=== PATIENT | female | born 1945 | race Caucasian/White ===

== ENCOUNTER 2017-09-09 09:24 | Emergency (ER) | payer MEDICARE, OTHER ==
[2017-09-09] MEDS ORDERED: NEOMYCIN/POLYMYXIN/HC OTIC SUSP 10ML BOTTLE ONE (10:00)
== END 2017-09-09 10:30 | disposition home or self-care (01) ==
LOC: EDH 09:24
DX: S00.411A Abrasion of right ear, initial encounter (principal); I10 Essential (primary) hypertension; E78.00 Pure hypercholesterolemia, unspecified; I25.10 Atherosclerotic heart disease of native coronary artery without angina pectoris; I25.2 Old myocardial infarction; Z88.8 Allergy status to other drugs, medicaments and biological substances; Z98.890 Other specified postprocedural states; Z87.891 Personal history of nicotine dependence; X58.XXXA Exposure to other specified factors, initial encounter; Y93.89 Activity, other specified; Y92.89 Other specified places as the place of occurrence of the external cause; Y99.8 Other external cause status